=== PATIENT | female | born 1955 | race Caucasian/White ===

== ENCOUNTER → 2024-09-10 | Day surgery (SDC) | payer MEDICARE ==
[~2024-09-10] MED LIST: ACETAMINOPHEN-1 EAC3 PO; ALENDRONATE SOD70 MG PO; ATORVASTATIN CA20 MG PO; B COMPLEX1 EACH PO; CARAFATE1 GM/10 ML PO; CELEBREX200 MG PO; CYMBALTA20 MG PO; DEXILANT30 MG PO; ETOMIDATE 40 MG/ 20ML VIAL IV ONE; FENTANYL CITRATE/PF 100MCG/2 ML INJ ONE; FERROUS SULFAT324 MG PO; GABAPENTIN400 MG PO; LEVOTHYROXINE50 MCG PO; LIDOCAINE HCL 2% LOCAL INJ 5 ML SDV VIAL INJ ONE; METOCLOPRAMIDE10 MG PO; MIDODRINE HCL5 MG PO; OXYBUTYNIN CHLOR5 M1 PO; PROPOFOL IV EMULSION 50 ML IV ONE; ROPINIROLE HCL1 MG PO; SEROQUEL100 MG PO; SEROQUEL50 MG PO; TRELEGY ELLIPT1 EACH INH; ZOLPIDEM TARTRAT5 MG PO
[2024-09-10] MEDS: LACTATED RINGER'S 1,000 ML ONE (06:41)
[2024-09-10 07:12] LABS: BASOPHILS % 0.3 % (0.0-1.0); EOSINOPHILS # (AUTO) 0.1 (0.0-0.4); EOSINOPHILS % 0.9 % (0.0-6.0); HEMATOCRIT 37.7 % (34.2-44.1); HEMOGLOBIN 11.3 g/dL (12.0-16.0); LYMPHOCYTES # (AUTO) 2.1 (1.0-3.2); LYMPHOCYTES % 32.3 % (18.0-39.1); MEAN CORPUSCULAR HEMOGLOBIN 27.9 pg (28-32); MEAN CORPUSCULAR VOLUME 93.1 fL (81-99); MONOCYTES # (AUTO) 0.3 (0.2-0.8); MONOCYTES % 5.2 % (4.4-11.3); PLATELET COUNT 191 x10e3/uL (140-360); RED BLOOD COUNT 4.05 x10e6/uL (3.6-5.1); WHITE BLOOD COUNT 6.54 x10e3/uL (4.8-10.8)
[2024-09-10 08:20] VITALS: TEMP 98.4
[2024-09-10 08:35] VITALS: BP 124/74; PULSE 86; RESP 15; O2SAT 99
== END | disposition home or self-care (01) ==
LOC: OR 05:55
PROVIDERS: ATTEND Internal Medicine Gastroenterology
DX: R13.10 Dysphagia, unspecified (principal); K29.50 Unspecified chronic gastritis without bleeding; K63.89 Other specified diseases of intestine; K31.89 Other diseases of stomach and duodenum; K57.30 Diverticulosis of large intestine without perforation or abscess without bleeding; K21.9 Gastro-esophageal reflux disease without esophagitis; K44.9 Diaphragmatic hernia without obstruction or gangrene; K64.8 Other hemorrhoids; J44.9 Chronic obstructive pulmonary disease, unspecified; I11.0 Hypertensive heart disease with heart failure; I50.9 Heart failure, unspecified; E78.5 Hyperlipidemia, unspecified; E03.9 Hypothyroidism, unspecified; F41.9 Anxiety disorder, unspecified; F31.9 Bipolar disorder, unspecified; Z79.1 Long term (current) use of non-steroidal anti-inflammatories (NSAID); Z79.899 Other long term (current) drug therapy; Z95.810 Presence of automatic (implantable) cardiac defibrillator
CPT/HCPCS: 43239; G0105; 36415; 45378; 85025; 88305; 93005; J2003